=== PATIENT | male | born 2005 | race Two or more races ===

== ENCOUNTER 2024-12-07 16:25 | Emergency (ER) | payer BC, SELFPAY ==
[2024-12-07 16:26] VITALS: BMI 29.9
[2024-12-07 16:54] VITALS: BP 118/76; PULSE 89; RESP 18; TEMP 36.6; O2SAT 99
--- NOTE | 2024-12-07 17:06 | XR_ITS ---
Examination: PA lateral chest 2 views. TECHNIQUE: Upright PA and lateral chest 2 views Exam date and time: December 07, 2024, 1717 hours INDICATIONS: Right-sided chest pain and difficulty breathing 3 hours. FINDINGS: Early pneumonia right base medially Normal heart size Left lung clear IMPRESSION: Early right basilar pneumonia
--- NOTE | 2024-12-07 17:07 | EDNOTE_ITS ---
<Statement entered by Mitzi Ruvalcaba MD - 12/08/24 05:25> As co-signing physician, I was present and available for consult prn. I concur with the plan and care as documented by the midlevel provider. ED Back Injury Pain RME/HPI General Chief Complaint: Back Pain/Injury Stated Complaint: RIGHT FLANK/BACK PAIN X2HR Time Seen by Provider: 12/07/24 16:36 Arrival date/time: 12/07/24 16:25 RME / HPI RME / HPI Narrative: 19-year-old male patient came in for evaluation regarding not feeling well. Patient woke up today for not feeling well, described as body aches, severity moderate. About 2 hours prior to ER visit patient complaining of right-sided posterior chest pain, worse with deep breathing and coughing. Patient denies any sore throat denies any cough denies any abdominal pain denies any vomiting d enies any diarrhea constipation denies any materia or frequency. Patient was given Tylenol earlier today. Denies any trauma or fall recently. Related Data Previous Rx's ?Medication ?Instructions ?Recorded azithromycin 250 mg tablet 250 mg PO QDAY 6 days #6 ta bs 12/07/24 (Zithromax Z-Alex) oseltamivir 75 mg capsule (Tamiflu) 75 mg PO BID 5 day s #10 caps 12/07/24 Allergies Allergy/AdvReac Type Severity Reaction Status Date / Time ibuprofen Allergy Intermediate Hallucinati Verified 12/07/24 16:28 ng Review of Systems Review of Systems Narrative Review of Systems: Review of system reviewed and within normal limits except mentioned in HPI ED Exam Narrative Physical exam: VITAL SIGNS: Reviewed. GENERAL APPEARANCE: Alert and interactive, follows commands, no acute distress, HEAD AND FACE: Non-traumatic. ENT: PERRL, pink conjunctivitis, eyelid no trauma, Mucous membrane moist. NECK: Supple, nontender, no nuchal rigidity. CHEST: Right posterior chest tenderness, no crepitus, no paradoxical movement, no retractions. LUNGS: Clear, well ventilated, symmetric, no rales, no wheezing, no ronchi, no stridor, good breath sounds bilaterally. HEART: Regular rate, regular rhythm, no murmur, no gallops. ABDOMEN: Soft, positive bowel sounds, nondistended, no guarding, nontender, no rebound, no masses, RECTAL: Deferred. GENITAL: Deferred. NEUROLOGICAL: Gross motor function intact sensory function intact, Appropriate for age. MUSCULOSKELETAL: low back nontender, full range of motion. EXTREMITIES: Nontender, full range of motion. SKIN: Color pink, dry, no rash, no lacerations, no abrasions, no contusions. LYMPHATICS: Deferred. Course Quality Measures none Orders Category Date Time Status Bedside COVID-19 Antigen Test NOW Care 12/07/24 17:06 Active Bedside Influenza A&B Antigen Test NOW Care 12/07/24 17:06 Completed XR chest 2V Stat Exams 12/07/24 17:06 Completed Acetaminophen Tab [Tylenol ES Tab] Med 12/07/24 17:06 Discontinued 1,000 mg PO X1 ONE Oseltamivir [Tamiflu] Med 12/07/24 18:51 Discontinued 75 mg PO X1 ONE Vital Signs Vital signs: Vital Signs Temperature 98 F 12/07/24 16:54 Pulse Rate 89 12/07/24 16:54 Respiratory Rate 18 12/07/24 16:54 Blood Pressure 118/76 12/07/24 16:54 Pulse Oximetry (%) 99 12/07/24 16:54 Oxygen Delivery Method Room Air 12/07/24 16:54 Back Pain / Injury MDM Narrative MDM Narrative:: 19-year-old male patient came in for evaluation regarding not feeling well. Patient woke up today for not feeling well, described as body aches, severity moderate. About 2 hours prior to ER visit patient complaining of right-sided posterior chest pain, worse with deep breathing and coughing. Patient denies any sore throat denies any cough denies any abdominal pain denies any vomiting denies any diarrhea constipation denies any materia or frequency. Patient was given Tylenol earlier today. Denies any trauma or fall recently. Patient tested positive for influenza A and B. Chest x-ray showed beginning pneumonia on the right lobe which could be viral in nature however patient will be sent home on Zithromax. Patient was noted to be satting 99% on room air Patient appears nontoxic and hemodynamically stable. Patient discharged home and instructed to follow-up with primary care provider in 24 to 48 hours. Instructed to return to the emergency department immediately if worsening of symptoms Patient data External records reviewed:: None Clinical information provided by:: patient Social determinants that could affect healthcare access:: none Patient has the following chronic illnesses:: None How is presenting disease/condition affected by chronic disease/condition?: no chronic disease Evaluation data The following diagnostics were reviewed and interpreted by me:: lab results and radiology exam(s) Lab and/or radiology exams considered but not ordered:: None Interpretation Summary: See results in [facility] Medications / Prescriptions Medications or Prescriptions considered but not ordered:: None Medication administrations:: Medication Administration History Discontinued Medications Acetaminophen (Acetaminophen 500 Mg Tablet) 1,000 mg PO X1 ONE Stop: 12/07/24 17:07 Last Admin: 12/07/24 17:26 Dose: Not Given Documented By: ARI Non-Admin Reason: Patient Refused Oseltamivir Phosphate (Oseltamivir 75 Mg Capsule) 75 mg PO X1 ONE Stop: 12/07/24 18:52 Last Admin: 12/07/24 19:01 Dose: 75 mg Documented By: ARI Tylenol and Tamiflu Consultations Consultation(s) initiated? (list below): No Diagnosis Differential diagnosis back pain/injury: other (Pneumonia, influenza, bronchitis) Most likely diagnosis given after review of the tests above:: Pneumonia, influenza Admission Indicated Admission indicated?: not indicated Admission Request Was there a request for admission?: No Disposition Plan Disposition Plan: Discharge Discharge Attestation Discharge Attestation: The patient and all family members were given an opportunity to ask questions and understood the discharge instructions. Discharge instructions specifically effects, indications for sooner follow up or return to the emergency department, and the expected course of current diagnosis. Patient condition: Stable Discharge Plan Plan Patient Disposition: HOME (Self Care) Discharge Disposition comment: Stable Prescriptions/Referrals Prescriptions/Med Rec: New oseltamivir [Tamiflu] 75 mg capsule 75 mg PO BID 5 Days Qty: 10 0RF azithromycin [Zithromax Z-Alex] 250 mg tablet 250 mg PO QDAY 6 Days Qty: 6 0RF Rx Instructions: start on day 2 of therapy Referrals: Neri Connell MD [Primary Care Provider] - In 1 week Problem List Clinical Impression: Influenza, Pneumonia Patient/Caregiver Discharge Instructions Discharge Activity: activity as tolerated Education Materials: The Flu (Influenza) Additional Instructions: Thank you for the opportunity for serving you today. You are stable for discharged . You are advised to: Follow-up with your PCP in 1 to 2 days Return to ED for worsening of symptoms Increase oral fluids Take medication as prescribed Take [id number] Tylenol as needed for pain and fever Print Language: Upper Sorbian Stand Alone Forms: Jessica Award Info., Patient Portal Info Letter PA/PIN DRAFTING MACHINE OPERATOR Supervising Physician PA/PIN DRAFTING MACHINE OPERATOR Supervising Physician: MD Aleksander
[2024-12-07] MEDS: OSELTAMIVIR 75 MG CAPSULE PO (19:01)
== END 2024-12-07 19:28 | disposition home or self-care (01) ==
PROVIDERS: Emergency Provider Emergency Medicine; PCP Pediatrics
DX: J11.00 Influenza due to unidentified influenza virus with unspecified type of pneumonia (principal)
CPT/HCPCS: 71046; 87400; 87811; 99283; A9270